=== PATIENT | male | born 1970 | race Caucasian/White ===

== ENCOUNTER 2018-09-06 14:58 | Emergency (ER) | payer OTHER ==
[2018-09-06] MEDS ORDERED: KETOROLAC TROMETHAMINE 30 MG/1ML VIAL IV ONE (15:26)
[2018-09-06] MEDS ORDERED: 0.9 % SODIUM CHLORIDE 1,000 ML IV ONE (15:27)
[2018-09-06 15:41] VITALS: BP 184/134
[2018-09-06 15:41] LABS: MEAN CORPUSCULAR HEMOGLOBIN 28.7 pg (28.0-34.0)
[2018-09-06 15:42] LABS: ANISOCYTOSIS 1+ (NEGATIVE); BASOPHILS % 0 % (0-2); EOSINOPHILS % 0 % (0-7); MONOCYTES % 1 % (0-11); SEGMENTED NEUTROPHILS % 83 % (39-79); SMUDGE CELLS 1 #PER 100 (0-0)
[2018-09-06 15:44] LABS: eGFR (Non-African) > 60
--- NOTE | 2018-09-06 16:20 | ED Physician Documentation ---
Flank Pain - HPI Stated Complaint: R Flank pain Chief Complaint: Flank Pain Additional Information: Patient presents to ER with right flank pain radiating to right lower quadrant since this morning around 1100. Patient rates his pain 10/10 and worse with movement. He is diaphoretic and pale. He denies fever, chills, nausea or vomiting. Onset: hours (5) Duration: constant Timing: still present Context: denies: out of country travel Severity: severe Quality: sharp, stabbing Associated Symptoms: none Exacerbated by: movements Relieved by: nothing Further Comments: no - ROS CONST: no problems GI/: none CVS/RESP: none EYES/ENT: none MS/SKIN/LYMPH: none NEURO/PSYCH: none - SOCIAL HX Smoking History: non-smoker Alcohol Use: none Drug Use: none - FAMILY HX Family History: none - PAST HX Past History: none Ischemic Bowel Risk Factors: none Other History: none Surgeries/Procedures: none - VITAL SIGNS Vital Signs: Vital Signs Temp Pulse Resp BP Pulse Ox 97.2 F L 83 19 184/134 95 09/06/18 14:58 09/06/18 14:58 09/06/18 14:58 09/06/18 14:58 09/06/18 14:58 - REVIEWED ASSESSMENTS Nursing Assessment Reviewed: Yes Vitals Reviewed: Yes Progress - Progress Progress: 1715 Discussed with Radiologist, suggested IR consult. 1725 Discussed with [facility] for transfer. 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 Moise, ED physician, agrees with transfer 1946 Patient left with EMS ED Results Lab/Radiology - Lab Results Lab Results: Lab Results 09/06/18 09/06/18 Unknown Unknown WBC 22.50 K/ul H K/ul (4.00-12.00) RBC 5.69 M/ul H M/ul (3.90-5.20) Hgb 16.3 g/dL g/dL (12.0-18.0) Hct 48.3 % % (37.0-53.0) MCV 85.0 fl fl (80.0-100.0) MCH 28.7 pg pg (28.0-34.0) MCHC 33.8 g/dL g/dL (30.0-36.0) RDW 15.0 % H % (11.3-14.3) Plt Count 261 K/mm3 K/mm3 (130-400) Seg Neutrophils % 83 % H % (39-79) Band Neutrophils % 6 % % (0-12) Lymphocytes % 5 % L % (16-50) Monocytes % 1 % % (0-11) Eosinophils % 0 % % (0-7) Basophils % 0 % % (0-2) Metamyelocytes % 3 % H % (0-0) Reactive Lymphocytes 2 % % (0-5) Smudge Cells 1 #PER 100 H #PER 100 (0-0) Poikilocytosis 1+ H (NEGATIVE) Anisocytosis 1+ H (NEGATIVE) Sodium 139 mmol/L mmol/L (137-145) Potassium 4.0 mmol/L mmol/L (3.5-5.1) Chloride 105 mmol/L mmol/L (98-107) Carbon Dioxide 23 mmol/L mmol/L (22-30) BUN 23 mg/dL H mg/dL (9-20) Creatinine 1.08 mg/dL mg/dL (0.66-1.25) Estimated Creat Clear 196 Est GFR ( Amer) > 60 (60 - ) Est GFR (Non-Af Amer) > 60 (60 - ) Glucose 153 mg/dL H mg/dL (74-106) Calcium 9.1 mg/dL mg/dL (8.4-10.2) Total Bilirubin 0.4 mg/dL mg/dL (0.2-1.3) AST 34 U/L U/L (15-46) ALT 27 U/L U/L (0-50) Alkaline Phosphatase 56 U/L U/L (38-126) Total Protein 7.6 g/dL g/dL (6.3-8.2) Albumin 4.5 g/dL g/dL (3.5-5.0) UA - +2 blood - Radiology Radiology Impressions: Report Submission Date: Sep 06, 2018 5:05:36 PM CDT Patient Study Name: JC PEGUERO Date: Sep 06, 2018 4:10:47 PM CDT Modality Type: CT\SR Gender: M Description: CT ABD PELVIS W/ CON : 68 Institution: [facility] Physician: JO GARCIA EXAMINATION: CT ABD PELVIS W/ CON HISTORY: RT FLANK PAIN TODAY, ELEVATED WHITE COUNT, NAUSEA/VOMITING TECHNIQUE: CT of the abdomen and pelvis was performed with contrast according to standard protocol. COMPARISON: None FINDINGS: The aorta is normal in caliber. The visible lung bases are clear. The heart size is normal. The liver enhances homogeneously. The gallbladder appears normal. The intrahepatic and extrahepatic bile ducts are nondilated. The spleen enhances homogeneously. The pancreas and adrenal glands are normal. The kidneys enhance symmetrically. There is no evidence of renal calculus or hydronephrosis. There is a large right hyperdense perinephric fluid collection consistent with a hematoma, which measures approximately 11.3 cm by 10.8 cm by 11.4 cm. A focus of a relative hyperdensity in the right lateral aspect of the hematoma likely represents a sentinel clot (series 3 image 47). There is associated mass effect on the right kidney and other adjacent structures. The hematoma dissects into the intraperitoneal space where there is small volume hemoperitoneum. The distal esophagus and stomach appear normal. The small bowel and colon are normal in caliber without evidence of wall thickening or obstruction. The appendix is not seen. No free air is identified in the abdomen. There is no abdominal lymphadenopathy. The urinary bladder is nondistended with fluid and appears normal. The prostate appears normal. No free fluid is seen in the pelvis. Bone windows demonstrate no suspicious lytic or blastic lesions. The visible osseous structures are intact. IMPRESSION: 1. Large right perinephric hematoma resulting in mass effect on the right kidney but with normal/symmetric renal enhancement. The hematoma dissects into the in traperitoneal space where there is small volume hemoperitoneum. The above findings were discussed with Dr. Russ by Dr. Rose at the time of this dictation. Electronically signed on Sep 06, 2018 5:05:36 PM CDT by: Juanjo Rose - Orders Orders: ED Orders Category Date Time Status Place IV Lock 1T Care 09/06/18 15:[address] ABD & PELVIS W/ CON Stat Exams 09/06/18 Ordered CBC/PLATELET/DIFF Routine Lab 09/06/18 Completed CMP Routine Lab 09/06/18 Completed RBC/PLATELET MORPHOLOGY Routine Lab 09/06/18 Completed UA W/MICRO IF INDICATED Routine Lab 09/06/18 15:26 Ordered 0.9 % Sodium Chloride [Normal Saline] 1,000 ml Med 09/06/18 15:27 Active IV Q1H Ketorolac Tromethamine [Toradol] Med 09/06/18 15:26 Discontinued 30 mg IV NOW ONE Abdominal Pain Physical Exam - Physical Exam General Appearance: mild distress EENT: PJ NECK: normal inspection, supple RESPIRATORY: no resp distress, chest non-tender, breath sounds normal CVS: reg rate & rhythm, heart sounds normal ABDOMEN: soft, tenderness (LLQ) BACK: CVA tenderness (R) SKIN: warm/dry EXTREMITIES: non-tender NEURO: oriented X3, motor nml, mood/affect nml Vital Signs: Vital Signs Temp Pulse Resp BP Pulse Ox 97.2 F L 83 19 184/134 95 09/06/18 14:58 09/06/18 14:58 09/06/18 14:58 09/06/18 14:58 09/06/18 14:58 Discharge Clincal Impression: Perinephric hematoma Referrals: Primary Doctor,No [Primary Care Provider] - 2 Days Comments: Patient transferred to [facility] ER under the care of Dr. Moise. Condition: Stable Disposition: 02 XFER SHT-TRM HOSP Decision to Admit: NO Date of Decison to Admit: 09/06/18 Decision Time: 18:33
[2018-09-06] MEDS ORDERED: MORPHINE SULFATE 5 MG/ML ML IV ONE (17:22)
[2018-09-06] MEDS ORDERED: ONDANSETRON HCL/PF 4 MG/ 2ML VIAL IVP ONE (17:22)
[2018-09-06] MEDS ORDERED: PROMETHAZINE HCL 25 MG TABLET PO ONE (19:16)
--- NOTE | 2018-09-06 20:59 | Diagnostic Imaging Report ---
JO GARCIA [facility] [id number] [facility] [address] [place], [place]. [address] Report Submission Date: Sep 06, 2018 5:05:36 PM CDT Patient Study Name: JC PEGUERO Date: Sep 06, 2018 4:10:47 PM CDT Modality Type: CT\SR Gender: M Description: CT ABD PELVIS W/ CON : 68 Institution: [facility] Physician: JO GARCIA EXAMINATION: CT ABD PELVIS W/ CON HISTORY: RT FLANK PAIN TODAY, ELEVATED WHITE COUNT, NAUSEA/VOMITING TECHNIQUE: CT of the abdomen and pelvis was performed with contrast according to standard protocol. COMPARISON: None FINDINGS: The aorta is normal in caliber. The visible lung bases are clear. The heart size is normal. The liver enhances homogeneously. The gallbladder appears normal. The intrahepatic and extrahepatic bile ducts are nondilated. The spleen enhances homogeneously. The pancreas and adrenal glands are normal. The kidneys enhance symmetrically. There is no evidence of renal calculus or hydronephrosis. There is a large right hyperdense perinephric fluid collection consistent with a hematoma, which measures approximately 11.3 cm by 10.8 cm by 11.4 cm. A focus of a relative hyperdensity in the right lateral aspect of the hematoma likely represents a sentinel clot (series 3 image 47). There is associated mass effect on the right kidney and other adjacent structures. The hematoma dissects into the intraperitoneal space where there is small volume hemoperitoneum. The distal esophagus and stomach appear normal. The small bowel and colon are normal in caliber without evidence of wall thickening or obstruction. The appendix is not seen. No free air is identified in the abdomen. There is no abdominal lymphadenopathy. The urinary bladder is nondistended with fluid and appears normal. The prostate appears normal. No free fluid is seen in the pelvis. Bone windows demonstrate no suspicious lytic or blastic lesions. The visible osseous structures are intact. IMPRESSION: 1. Large right perinephric hematoma resulting in mass effect on the right kidney but with normal/symmetric renal enhancement. The hematoma dissects into the intraperitoneal space where there is small volume hemoperitoneum. The above findings were discussed with Dr. Russ by Dr. Rose at the time of this dictation. Electronically signed on Sep 06, 2018 5:05:36 PM CDT by: Juanjo AGRAWAL
[2018-09-06 21:28] LABS: APPEARANCE,URINE CLOUDY (CLEAR); COLOR,URINE AMBER (YELLOW); OCCULT BLOOD,URINE 2+ (NEGATIVE); PH URINE 5.5 (5.0 - 8.0)
== END 2018-09-06 19:45 | disposition short-term general hospital (02) ==
LOC: ED 14:58
DX: S37.021A Major contusion of right kidney, initial encounter (principal); X58.XXXA Exposure to other specified factors, initial encounter; Y93.9 Activity, unspecified; Y92.9 Unspecified place or not applicable
CPT/HCPCS: 36415; 74177; 80053; 81002; 85025; 96374; 96375; 99285; J1885; J2405; J7030; Q9967; S1016